=== PATIENT | female | born 1990 | race Caucasian/White ===

== ENCOUNTER 2018-03-22 19:50 | Inpatient (IN) | payer MEDICAID ==
[~2018-03-22] VITALS: Ht 170.2 cm; Wt 60.5 kg
[2018-03-22 21:54] LABS: AMPHETAMINE QUAL UR POSITIVE (NEG <=1000)
[2018-03-22 21:58] LABS: UA SPECIFIC GRAVITY >=1.030 (1.005-1.035); microscopic required? YES; urine erythrocyte 3+ (NEGATIVE)
[2018-03-22 22:08] LABS: BASOPHIL % 0.2 % (0-2); PLATELET COUNT 338 x10^3mcL (130-400)
[2018-03-22 22:12] LABS: RED CELL DISTRIBUTION WIDTH 23.4 % (11.5-14.5)
[2018-03-22 22:19] LABS: rbc morphology (normal/abnorm) ABNORMAL (NORMAL)
[2018-03-23 00:10] VITALS: BP 111/73
[2018-03-23 02:54] LABS: CALCIUM 8.6 mg/dL (8.5-10.1); CARBON DIOXIDE 26.9 mmol/L (21-32); CHLORIDE SERUM 106 mmol/L (98-107); CREATININE SERUM 0.8 mg/dL (0.6-1.0); GFR1 > 60 mL/min; GLUCOSE SERUM 94 mg/dL (74-106); POTASSIUM SERUM 3.7 mmol/L (3.5-5.1); SODIUM SERUM 138 mmol/L (136-145)
[2018-03-23 03:02] LABS: T3 TOTAL 1.03 ng/mL
[2018-03-23 03:04] LABS: FREE T4 1.07 ng/dL (0.76-1.46); FREE THYROXINE INDEX 2.6 ug/dL (1.4-4.5); T4(THYROXINE) 8.1 ug/dL (4.7-13.3)
[2018-03-23 04:01] LABS: MAGNESIUM 2.1 mg/dL (1.8-2.4); PHOSPHOROUS 4.3 mg/dL (2.5-4.9)
[2018-03-23 04:10] LABS: CHOLESTEROL/HDL RATIO 3.1
[2018-03-23 05:40] VITALS: BP 97/54
[2018-03-23 06:55] LABS: CALCIUM 7.9 mg/dL (8.5-10.1); CARBON DIOXIDE 23.7 mmol/L (21-32); CHLORIDE SERUM 115 mmol/L (98-107); CREATININE SERUM 0.6 mg/dL (0.6-1.0); GFR1 > 60 mL/min; GLUCOSE SERUM 91 mg/dL (74-106); POTASSIUM SERUM 3.6 mmol/L (3.5-5.1); SODIUM SERUM 140 mmol/L (136-145)
[2018-03-23 07:02] LABS: IRON 11 ug/dL (50-170); TOTAL IRON BINDING CAPACITY 259 ug/dL (250-450)
[2018-03-23 07:59] LABS: BASOPHIL % 0.3 % (0-2); PLATELET COUNT 301 x10^3mcL (130-400); RED BLOOD CELLS 3.71 M/mm3 (4.10-5.10)
[2018-03-23 08:04] LABS: RED CELL DISTRIBUTION WIDTH 23.6 % (11.5-14.5)
[2018-03-23 09:16] VITALS: BP 92/56
[2018-03-23 09:24] VITALS: BP 92/56
[2018-03-23 09:42] LABS: rbc morphology (normal/abnorm) ABNORMAL (NORMAL)
[2018-03-23 09:43] LABS: acanthocyte (spur cell) 2+
[2018-03-23 09:44] LABS: ovalocyte/elliptocyte 2+
[2018-03-23 14:08] VITALS: BP 99/61
[2018-03-28 13:16] VITALS: Ht 170.2 cm; Wt 60.5 kg
== END 2018-03-23 15:40 | disposition left against medical advice (07) | DRG 566 ==
LOC: ED 19:50 → DU 23:19
PROVIDERS: Emergency Medicine; Family Medicine
DX: O46.91 Antepartum hemorrhage, unspecified, first trimester (principal); N17.0 Acute kidney failure with tubular necrosis; Z59.0 Homelessness; O99.321 Drug use complicating pregnancy, first trimester; F15.10 Other stimulant abuse, uncomplicated; O26.831 Pregnancy related renal disease, first trimester; O23.41 Unspecified infection of urinary tract in pregnancy, first trimester; O99.011 Anemia complicating pregnancy, first trimester; Z91.14 Patient's other noncompliance with medication regimen
CPT/HCPCS: 83880; 84439; 87491; 87591; J2916; J7030